=== PATIENT | female | born 1970 | race Two or more races ===

== ENCOUNTER 2017-01-21 10:11 | Inpatient (IN) | payer OTHER ==
[~2017-01-21] VITALS: Ht 152.4 cm; Wt 77.1 kg
--- NOTE | 2017-01-21 10:20 | NUR ---
BIB SENT BY PRIMARY FOR INFECTED BARTHOLIN CYST. SEEN Joe RINALDI FOR EVAL. VSS. NAD NOTED. STARTED ABX YESTERDAY. SAFETY AND COMFORT MEASURES PROVIDED. WILL MONITOR.
[2017-01-21] MEDS ORDERED: ONDANSETRON HCL/PF 4 MG/2 ML VIAL ONE (10:26)
[2017-01-21] MEDS ORDERED: METRONIDAZOLE 500MG/ NS 100ML 100 ML IV ONE ×2 (10:26→10:30)
[2017-01-21] MEDS ORDERED: HYDROCODONE/APAP 5/325MG 1 EACH TABLET ONE (10:26)
[2017-01-21] MEDS ORDERED: HYDROCODONE/APAP 5/325MG 1 EACH TABLET PO ONE (10:30)
[2017-01-21] MEDS ORDERED: IV NS 0.9% 1,000 ML BAG IV ONE (10:30)
[2017-01-21] MEDS ORDERED: CEFOTETAN DISODIUM 1 G in IV D5W 50 ML IV SCH (10:30)
[2017-01-21] MEDS ORDERED: ONDANSETRON HCL/PF 4 MG/2 ML VIAL IVP ONE (10:30)
--- NOTE | 2017-01-21 10:30 | NUR ---
IV ACCESS STARTED. BLOOD AND CULTURES DRAWN FOR LABS. MEDICATED ORDERED.
[2017-01-21] MEDS ORDERED: CEPH-570 PO (10:52)
[2017-01-21 10:59] LABS: CALCIUM, SERUM 9.2 mg/dL (8.5-10.1); CREATININE 0.8 mg/dL (0.6-1.3); POTASSIUM 3.8 mmol/L (3.5-5.1)
[2017-01-21] MEDS ORDERED: CEFTRIAXONE 1GM BAG (ER ONLY) 1 GM/50 ML PIGGYBACK IV ONE (11:00)
[2017-01-21 11:04] LABS: BASOPHILS % (AUTO) 0.4 % (0.0-2.0); EOSINOPHILS # (AUTO) 0.1 /CMM (0.0-0.7); EOSINOPHILS % (AUTO) 0.7 % (0.0-6.0); HEMATOCRIT 39 % (33-45); HEMOGLOBIN 12.8 g/dL (11.5-14.8); LYMPHOCYTES # (AUTO) 1.9 /CMM (0.8-4.8); LYMPHOCYTES % (AUTO) 17.5 % (20.0-44.0); MEAN CORPUSCULAR HEMOGLOBIN 29 PG (26.0-33.0); MEAN CORPUSCULAR HGB CONC 33 g/dl (31.0-36.0); MEAN CORPUSCULAR VOLUME 87 fL (82-100); MONOCYTES # (AUTO) 0.6 /CMM (0.1-1.30); MONOCYTES % (AUTO) 5.7 % (2.0-12.0); NEUTROPHILS # (AUTO) 8.2 /CMM (1.8-8.9); NEUTROPHILS % (AUTO) 75.7 % (43.0-81.0); PLATELET COUNT (AUTO) 316 /CMM (150-450); RDW COEFFICIENT OF VARIATION 13.9 (11.5-15.0); RED BLOOD CELL COUNT(AUTO) 4.51 MIL/uL (4.0-5.2); WHITE BLOOD COUNT (AUTO) 10.9 K/uL (4.3-11.0)
[2017-01-21 11:05] LABS: ALBUMIN 3.6 g/dL (3.4-5.0); BILIRUBIN,DIRECT 0.1 mg/dL (0.0-0.2); BILIRUBIN,TOTAL 0.3 mg/dL (0.2-1.0); TOTAL PROTEIN, SERUM 8.1 g/dL (6.4-8.2)
[2017-01-21 11:10] LABS: INR 0.93 (0.87-1.13); PROTHROMBIN TIME 9.7 SECS (9.5-12.7)
--- NOTE | 2017-01-21 11:28 | NUR ---
REPORT GIVEN DANE KEY FOR AMY MS 203
[2017-01-21] MEDS ORDERED: CEFTRIAXONE 1GM BAG (ER ONLY) 50 ML IV ONE (11:38)
[2017-01-21 12:10] VITALS: BP 110/59
--- NOTE | 2017-01-21 12:15 | NUR ---
RN INITIAL NOTES PATIENT RECEIVED FROM ER. NO SOB OR DISTRESS NOTED AT THIS TIME. PATIENT DENIES PAIN. PATIENT ORIENTED TO ROOM AND CALL LIGHT. BELONGINGS CHECKED AND VERIFIED. IV FLUSHED AND PATENT. BED IN A LOW POSITION, CALL LIGHT WITHIN PATIENT REACH. WILL CONTACT MD FOR ADMITTING ORDERS.
--- NOTE | 2017-01-21 12:39 | NUR ---
RN NOTES CALLED AND SPOKE TO DR FERNANDO WHO ORDERED TYLENOL #3 Q3H PRN, MORPHINE 4MG IV Q4H PRN, GENTAMICIN IV 80MG Q12H, CLINDAMYCIN IV 600MG IV Q8H, AND AMPICILLIN IV 2G Q6H. ORDERS VERIFIED BY READ BACK AND MD CONFIRMED. ALL ORDERS PLACED. WILL CARRY OUT.
[2017-01-21] MEDS ORDERED: HYDROMORPHONE 1 MG/1 ML DISP.SYRIN IV PRN (13:00)
[2017-01-21] MEDS ORDERED: FEE PK DOSING 1 MIN EA MC ONE (13:46)
[2017-01-21] MEDS: IV D5 LR 1,000 ML IV PRN (14:07)
[2017-01-21] MEDS: CLINDAMYCIN 600 MG in IV D5W 50 ML IV SCH ×2 (14:08→21:39)
[2017-01-21] MEDS: AMPICILLIN 2 GM in IV NS 0.9% 100 ML IV SCH ×2 (14:08→20:38)
[2017-01-21] MEDS: ACETAMINOPHEN W/ CODEINE#3 1 EA TABLET PO PRN ×3 (15:22→23:42)
[2017-01-21] MEDS: GENTAMICIN 400 MG in IV D5W 100 ML IV SCH (15:24)
[2017-01-21 16:00] VITALS: BP 116/60
[2017-01-21] MEDS: DOCUSATE SODIUM 100 MG CAPSULE PO SCH (16:24)
--- NOTE | 2017-01-21 18:42 | NUR ---
RN CLOSING NOTES NO SIGNIFICANT CHANGES IN PATIENT CONDITION THROUGHOUT THE SHIFT. NO SOB OR DISTRESS NOTED AT THIS TIME. PATIENT DENIES PAIN AT THIS TIME. BED IN A LOW POSITION, CALL LIGHT WITHIN PATIENT REACH. WILL ENDORSE FOR AMY.
--- NOTE | 2017-01-21 19:00 | NUR ---
MS/RN OPENING NOTES PT RECEIVED IN BED. A/O X 3. TOLERATING ROOM AIR, BREATHING EVEN AND UNLABORED, NO APPARENT SIGN OF DISTRESS. PT APPEARS CALM. BED IN LOW/LOCKED POSITION WITH CALL LIGHT IN REACH. SIDE RAILS UPX2 AND BED ALARM ON FOR SAFETY. WILL CONTINUE TO MONITOR
[2017-01-21 19:54] VITALS: BP 101/70
[2017-01-21 20:00] VITALS: BP 101/70
[2017-01-21] MEDS ORDERED: GENTAMICIN 80 MG in IV D5W 50 ML IV SCH (21:00)
[2017-01-22] VITALS (16 sets, daily range): BP systolic 90–108; BP diastolic 51–66
--- NOTE | 2017-01-22 00:03 | NUR ---
received a call from lab reporting gentamycin trough level of 3. per last dose of gentamycin was give at 1524 by ariane. per pharmacy report gentamycin random will be drawn at 2300. so the gentamycin level is random instead of trough. next gentamycin level will be at 1400 tmrw which will be reviewed by pharmacy.
[2017-01-22] MEDS: AMPICILLIN 2 GM in IV NS 0.9% 100 ML IV SCH ×4 (02:29→20:28)
[2017-01-22] MEDS: IV D5 LR 1,000 ML IV PRN ×2 (04:17→21:18)
[2017-01-22] MEDS: CLINDAMYCIN 600 MG in IV D5W 50 ML IV SCH ×3 (04:17→21:20)
--- NOTE | 2017-01-22 06:28 | NUR ---
MS RN CLOSING NOTES PATIENT COMFORTABLY ASLEEP AND EASILY AWAKEN, HOB ELEVATED FOR BETTER LUNG EXPANSION. PATIENT DENIES PAIN AT THIS TIME. RESPIRATIONS EVEN AND UNLABORED. TOLERATING ROOM AIR 99% NO S/S OF ACUTE DISTRESS, NO SOB, AFEBRILE, ALL NURSING CARE RENDERED, ON ATB WITH NO A/R NOTED. NEEDS ATTENDED AND ANTICIPATED, KEPT CLEAN AND DRY AND COMFORTABLE, GOOD SKIN CARE PROVIDED. FREQUENT VISUAL CHECK DONE FOR SAFETY EVERY 2 HOURS. SAFE HAZARD FREE ENVIRONMENT PROVIDED. CALL LIGHT WITHIN EASY TO REACH, ON LOW BED AT ALL TIMES TO ENSURE SAFETY, WILL ENDORSE TO THE NEXT SHIFT CONTINUE PLAN OF CARE.
[2017-01-22 06:42] LABS: CALCIUM, SERUM 8.2 mg/dL (8.5-10.1); CREATININE 0.8 mg/dL (0.6-1.3); POTASSIUM 3.8 mmol/L (3.5-5.1)
--- NOTE | 2017-01-22 07:22 | NUR ---
MSRN OPENING NOTES PATIENT RECEIVED AWAKE IN BED IN NO ACUTE SIGNS OF DISTRESS. A/O X 3. VERBALLY RESPONSIVE. REPORTED LIZA PT IS NPO FOR POSSIBLE SURGERY TODAY. ON ROOM AIR, BREATHING EVEN AND UNLABORED. IV ACCESS ON LEFT AC INTACT AND PATENT WITH D5LR AT 100ML/HR INFUSING WELL. BED IN LOW/LOCKED POSITION WITH CALL LIGHT IN REACH. SIDE RAILS UP X2 AND BED ALARM ON FOR SAFETY. WILL CONTINUE TO MONITOR PT ACCORDINGLY.
[2017-01-22] MEDS: DOCUSATE SODIUM 100 MG CAPSULE PO SCH ×2 (08:40→17:17)
[2017-01-22] MEDS ORDERED: MORPHINE SULFATE INJ 4 MG/ML DISP.SYRIN IV PRN (12:00)
[2017-01-22] MEDS ORDERED: MEPERIDINE HCL/PF 50 MG/ML DISP.SYRIN IV PRN (12:00)
[2017-01-22] MEDS ORDERED: MIDAZOLAM HCL 2 MG/2ML VIAL ONE (12:38)
[2017-01-22] MEDS ORDERED: FENTANYL PF 100MCG/2ML AMPUL ONE (12:38)
--- NOTE | 2017-01-22 12:50 | NUR ---
RN NOTES PATIENT TRANSPORTED TO O.R. VIA HER BED FOR BARTHOLIN GLANDS ABSCESS EXCISION. AWAKE, ALERT AND ORIENTED X 3. CONSENT FOR THE OPERATION SIGNED BY PT AFTER EXPLAINING THE PROCEDURE. DR FERNANDO ALSO CAME TO SEE PT. V/S TAKEN AND RECORDED: BP 108/67, R 18, P 99, T 98F, SP02 94%. WILL WAIT FOR PT AFTER OPERATION.
[2017-01-22] MEDS ORDERED: HYDROGEN PEROXIDE 480 ML BOTTLE ONE (13:17)
[2017-01-22] MEDS ORDERED: KETOROLAC TROMETHAMINE INJ 30 MG/ML VIAL IV PRN (14:00)
[2017-01-22] MEDS ORDERED: ONDANSETRON HCL/PF 4 MG/2 ML VIAL IVP PRN ×2 (14:00→14:30)
[2017-01-22] MEDS ORDERED: IV D5 LR 1,000 ML IV PRN (14:00)
--- NOTE | 2017-01-22 14:19 | NUR ---
Patient lives with family. She is ambulatory and independent with adl's. No dc planning needs identified at this time. Spouse will provide ride when discharge. Addendum: 01/22/17 at 1419 by ANA BOB RN Amended: Links added.
--- NOTE | 2017-01-22 14:20 | NUR ---
RN NOTES PATIENT RETURNED TO UNIT S/P BARTHOLIN GLANDS ABSCESS REMOVAL BY LIZZ TORRES. AWAKE AND ALERT. PT ON 02 VIA N/C AT 2LPM AT THIS TIME, BREATHING EVEN WITH NO DISTRESS NOTED. V/S TAKEN: BP 104/67, P 46, R 18, T 98.1 SP02 99%. ASSESSED PT AND NOTED WITH DRESSING INTACT ON LEFT GROIN, NO ACTIVE BLEEDING NOTED. PT ASKED IF SHE'S IN PAIN AND STATED NO. PT NOTED WITH NEWLY INSERTED FINLEY CATHETER FR#16 WITH NIC COLORED URINE NOTED TO COLLECTING CANISTER. MD WITH ORDER TO MONITOR I AND O EVERY SHIFT. CBC IN AM. V/S Q 15MINS X2HRS THEN [id number] X 2HRS , THEN Q1HRS X 2HRS AND Q 4HRS THEREAFTER. ALSO TO PREPARE WOUND SUPPLIES AT BEDSIDE FOR TOMORROW'S DRESSING CHANGE. PT ALSO TO RECEIVED MORPHINE DRIP 1 MG LOCK-OUT INTERVAL 7MINUTES WITH ONE HOUR LIMIT 8MG. PT ALSO TO START ON CLEAR LIQUID DIET AND ADVANCE TOLERATED. PT TO CONTINUE ON ANTIOBIOTIC THERAPIES ORDERED. WILL CONTINUE TO MONITOR
[2017-01-22] MEDS ORDERED: NALOXONE HCL 0.4 MG/ML AMPUL IV PRN (14:30)
[2017-01-22] MEDS ORDERED: HYDROMORPHONE INJ 2 MG/ML DISP.SYRIN IV PRN (14:30)
[2017-01-22] MEDS: GENTAMICIN 400 MG in IV D5W 100 ML IV SCH (14:36)
[2017-01-22] MEDS ORDERED: KEY,NONCONTROL,TO KEEP IN PYXI 1 EA MC ONE (15:05)
[2017-01-22] MEDS: MORPHINE SULFATE 30 MG in IV NS 0.9% 28 ML, PCA TOTAL VOLUME 1 BAG IV PRN ×3 (15:44)
--- NOTE | 2017-01-22 16:11 | NUR ---
RN NOTES PATIENT STARTED ON MORPHINE DRIP 1MG/ML WITH LOCKOUT TIME OF 7 MINUTES AND ONLY 8MG ONE HOUR LIMIT. EXPLAINED TO PT HOW TO USE TAR CHASER MACHINE AND VERBALIZED UNDERSTANDING. WILL CONTINUE TO MONITOR
--- NOTE | 2017-01-22 18:55 | NUR ---
MS RN CLOSING NOTES PATIENT RESTING IN BED AT MODERATE HIGH BACKREST WATCHING TV. A/O X 3, SAME ABLE TO VERBALIZED NEEDS , NO C/O PAIN VOICED SINCE OPERATION THIS AFTERNOON. ON ROOM AIR, BREATHING EVEN AND UNLABORED. DRESSING ON LEFT GROIN INTACT, DRY WITH NO ACTIVE BLEEDING NOTED. FINLEY CATHETER IN PLACED AND ACTIVELY DRAINING CLEAR NIC URINE TO BEDSIDE DRAINAGE BAG. IV ACCESS ON LEFT AC INTACT AND PATENT WITH D5LR AT 100ML/HR INFUSING WELL, NO SIGNS OF INFILTRATION NOTED. KEPT BED IN LOW/LOCKED POSITION WITH CALL LIGHT IN REACH. SIDE RAILS UP X2 AND BED ALARM ON FOR SAFETY. WILL ENDORSED TO JACQUARD CARD LACER NURSE FOR AMY. .
--- NOTE | 2017-01-22 19:00 | NUR ---
MS/RN OPENING NOTES PT RECEIVED IN BED. A/O X 4. STABLE CONDITION. BREATHING EVEN AND UNLABORED, TOLERATING ROOM AIR 98% NO APPARENT SIGN OF DISTRESS. BED IN LOW/LOCKED POSITION WITH CALL LIGHT IN REACH. SIDE RAILS UPX2 AND BED ALARM ON FOR SAFETY. WILL CONTINUE TO MONITOR
[2017-01-23] VITALS: BP 103/51
[2017-01-23] MEDS: AMPICILLIN 2 GM in IV NS 0.9% 100 ML IV SCH ×4 (02:35→20:20)
[2017-01-23] MEDS: CLINDAMYCIN 600 MG in IV D5W 50 ML IV SCH ×3 (04:46→21:05)
[2017-01-23 06:00] VITALS: BP 98/62
--- NOTE | 2017-01-23 06:37 | NUR ---
MS RN CLOSING NOTES PT ASLEEP EASILY AWAKEN, HEAD OF BED ELEVATED FOR BETTER LUNG EXPANSION. DENIES PAIN THROUGHOUT THE SHIFT. ON MOTION GRAPHICS DESIGNER PUMP EDUCATED ABOUT THE USES OF IT. VERBALIZED UNDERSTANDING. PER PATIENT SHE IS NOT IN PAIN,. 0 MG NO USAGE OF MOTION GRAPHICS DESIGNER PUMP THROUGHOUT 12 HR SHIFT, IN STABLE CONDITION. TOLERATING ROOM AIR 02 SAT AT 99%. NO S/S OF ACUTE DISTRESS, NO SOB, RESPIRATIONS EVEN AND UNLABORED. PATIENT DENIES PAIN AT THIS TIME. S/P CYST EXCISION WITH INTACT DRESSING NO S/S OF ACTIVE BLEEDING NOTED. PER PT SHE DOESNT WANT THE DRESSING TO BE TAKEN OFF AT THIS TIME, DRESSING IS NOT SOILED. ON ATB WITH NO A/R NOTED. F/C CATH INTACT DRAINING YELLOW VIA GRAVITY WITH NO SEDIMENTS NO HEMATURIA NO CLOUDINESS. AFEBRILE, ALL NURSING CARE RENDERED, NEEDS ATTENDED AND ANTICIPATED, KEPT CLEAN AND DRY AND COMFORTABLE, GOOD SKIN CARE PROVIDED. SAFETY HAZARD FREE ENVIRONMENT.. CALL LIGHT WITHIN EASY TO REACH, ON LOW BED AT ALL TIMES TO ENSURE SAFETY, WILL ENDORSE TO THE NEXT SHIFT CONTINUE PLAN OF CARE.
--- NOTE | 2017-01-23 07:30 | NUR ---
MS/RN Patient received Patient received from supervisor furnace room. No needs at this time. CLOTH MERCERIZER BACK TENDER ordered, but has not been used overnight as patient stating that pain has improved since surgery. Per MD order, all dressing and packing supplies at bedside. Call light within reach, will continue to monitor.
[2017-01-23 08:00] VITALS: BP 114/58
--- NOTE | 2017-01-23 08:00 | NUR ---
MS/RN Medications IVAB administered as ordered.
[2017-01-23] MEDS: DOCUSATE SODIUM 100 MG CAPSULE PO SCH ×2 (08:07→17:00)
[2017-01-23 08:15] LABS: HEMATOCRIT 36 % (33-45); HEMOGLOBIN 11.9 g/dL (11.5-14.8); MEAN CORPUSCULAR HEMOGLOBIN 29 PG (26.0-33.0); MEAN CORPUSCULAR HGB CONC 33 g/dl (31.0-36.0); MEAN CORPUSCULAR VOLUME 86 fL (82-100); PLATELET COUNT (AUTO) 298 /CMM (150-450); RDW COEFFICIENT OF VARIATION 14.2 (11.5-15.0); RED BLOOD CELL COUNT(AUTO) 4.18 MIL/uL (4.0-5.2); WHITE BLOOD COUNT (AUTO) 5.6 K/uL (4.3-11.0)
[2017-01-23 08:32] LABS: CALCIUM, SERUM 8.4 mg/dL (8.5-10.1); CREATININE 0.7 mg/dL (0.6-1.3); POTASSIUM 3.8 mmol/L (3.5-5.1)
[2017-01-23 09:22] LABS: EOSINOPHILS % (MANUAL) 1 % (0-4); LYMPHOCYTES % (MANUAL) 28 % (16-48); MONOCYTES % (MANUAL) 7 % (0-11.0); NEUTROPHILS % (MANUAL) 64 (42-76)
--- NOTE | 2017-01-23 10:13 | NUR ---
MS/RN BM Assisted to bathroom, BM.
--- NOTE | 2017-01-23 11:42 | NUR ---
MS/RN S/B Dr Corcoran Seen by Dr Corcoran - dressing changed, carey catheter removed. regional training manager to be contacted to arrange daily home health for wound care. Discharge planning for tomorrow.
--- NOTE | 2017-01-23 13:00 | NUR ---
MS/RN S/B care transition manager Seen by bilingual case manager - having difficulty at this time finding home health agency in patient's [place] Agencies that are in area do not accept patient's insurance or are unable to verify insurance due to it being weekend. Patient made aware that discharge may not happen until Wednesday
[2017-01-23] MEDS ORDERED: KEY,NONCONTROL,TO KEEP IN PYXI 1 EA MC ONE ×2 (14:06→15:40)
--- NOTE | 2017-01-23 14:30 | NUR ---
MS/RN Gentamicin Gentamicin dose ordered for 2p. Pharmacy called as medication not in med room. Per Sunny, order has to be reviewed.
[2017-01-23] MEDS: GENTAMICIN 400 MG in IV D5W 100 ML IV SCH (15:36)
[2017-01-23] MEDS: MORPHINE SULFATE 30 MG in IV NS 0.9% 28 ML, PCA TOTAL VOLUME 1 BAG IV PRN ×3 (15:45)
[2017-01-23 16:00] VITALS: BP 116/60
[2017-01-23] MEDS: LACTOBACILLUS RHAMNOSUS GG 1 EACH CAP.SPRINK PO SCH (17:20)
--- NOTE | 2017-01-23 18:11 | NUR ---
MS/RN End note Dressing changed as ordered and repacked. SENIOR INFORMATICA ETL DEVELOPER to be taken down later this evening. All needs atteded, call light within reach, will endore to car shifter.
--- NOTE | 2017-01-23 19:20 | NUR ---
RN NOTES MORPHINE OFFICE MACHINE TECHNICIAN DISCONTINUED PER MD ORDER. IV INFUSION REMOVED. DISPOSED OF EXCESS MORPHINE PER PROTOCOL
[2017-01-23 20:00] VITALS: BP 102/61
--- NOTE | 2017-01-23 20:00 | NUR ---
RECEIVED PATIENT IN BED, ALERT AND ORIENTED X4, CALM, NO SOB, NO COMPLAIN OF PAIN AT THIS TIME, ON MDS MANAGER, WILL DISCONTINUE MDS MANAGER. ABLE TO AMBULATE TO THE TOILET, NO COMPLAIN OF PAIN ON URINATION, NEEDS ATTENDED, CALL LIGHT WITHIN REACH,.
[2017-01-23 21:49] VITALS: BP 102/61
[2017-01-24] MEDS: AMPICILLIN 2 GM in IV NS 0.9% 100 ML IV SCH ×2 (02:40→08:13)
[2017-01-24] MEDS: CLINDAMYCIN 600 MG in IV D5W 50 ML IV SCH ×2 (05:17→12:15)
--- NOTE | 2017-01-24 06:40 | NUR ---
RN NOTES PATIENT IS RESTING COMFORTABLY IN BED, NO SOB, NO COMPLAIN OF PAIN, ABLE TO TOLERATE DIET, ABLE TO VOID WITHOUT DIFFICULTY AND PAIN, DRESSING IS INTACT, FOR D/C PLANNING TODAY. NEEDS ATTENDED, CALL LIGHT WITHIN REACH
--- NOTE | 2017-01-24 07:24 | NUR ---
RN NOTES REPORT RECEIVED FROM SANITARY PLUMBER. PATIENT IS RESTING COMFORTABLY IN BED. NO SOB OR DISTRESS NOTED. PATIENT DENIES PAIN AT THIS TIME. BED IN A LOW POSITION, CALL LIGHT WITHIN PATIENT REACH. WILL CONTINUE TO MONITOR.
[2017-01-24 08:05] VITALS: BP 107/60
[2017-01-24] MEDS: LACTOBACILLUS RHAMNOSUS GG 1 EACH CAP.SPRINK PO SCH (08:12)
[2017-01-24] MEDS: DOCUSATE SODIUM 100 MG CAPSULE PO SCH (08:13)
[2017-01-24] MEDS: ACETAMINOPHEN W/ CODEINE#3 1 EA TABLET PO PRN (08:17)
[2017-01-24 10:30] LABS: CALCIUM, SERUM 8.4 mg/dL (8.5-10.1); POTASSIUM 3.4 mmol/L (3.5-5.1)
[2017-01-24] MEDS ORDERED: POTASSIUM CHLORIDE 20 MEQ TAB.PRT.SR PO SCH (11:30)
--- NOTE | 2017-01-24 13:12 | NUR ---
E COMMERCE MERCHANDISING COORDINATOR NOTE DISCHARGE INSTRUCTIONS GIVEN TO PATIENT AND ABLE TO UNDERSTAND. ALL PAPERWORK SIGNED AND BELONGINGS ACCOUNTED FOR. PATIENT GIVEN CONTACT INFORMATION FOR DR FERNANDO WITH INSTRUCTIONS TO FOLLOW UP WITH THE MD NEXT WEDNESDAY. IV DISCONNECTED AND PRESSURE APPLIED. NO BLEEDING NOTED AT THE SITE. FLU SHOT NOT GIVEN. ON ADMISSION, PATIENT AGREED TO FLU SHOT, BUT WHEN ASKED ON DISCHARGE, PT STATES THAT SHE WOULD RATHER HAVE THE FLU SHOT AT WORK WHEN SHE IS FEELING BETTER. PATIENT LEFT IN STABLE CONDITION, VIA WHEEL CHAIR WITH INWARD TOLL OPERATOR AND FAMILY. NO SOB OR DISTRESS NOTED. PATIENT DENIES PAIN. PATIENT DISCHARGED TO HOME. PRESCRIPTIONS FOR PAIN GIVEN TO PATIENT.
== END 2017-01-24 13:12 | disposition home health service (06) | DRG 581 ==
LOC: ER 10:14 → MEDSG2 11:42
PROVIDERS: ADMIT Obstetrics & Gynecology
PROC: 0H99XZZ Drainage of Perineum Skin, External Approach (ICD-10-PCS; principal; 2017-01-22 13:15)
DX: L02.215 Cutaneous abscess of perineum (principal); N75.0 Cyst of Bartholin's gland; Z90.49 Acquired absence of other specified parts of digestive tract; Z98.84 Bariatric surgery status
CPT/HCPCS: 36415; 71010-TC; 80048-TC; 80076-TC; 80170-TC; 83605-TC; 84702-TC; 85025-TC; 85730-TC; 87040-TC; 87070-TC; 87075-TC; 87081-TC; 87186-TC; A4216; A4606; A6402; A6403; J0290; J0696; J1100; J1580; J1885; J2175; J2250; J2270; J2405; J2704; J3010; J3490; J7030; J7060; Z7610

== ENCOUNTER 2019-06-19 08:58 | Inpatient (IN) | payer OTHER ==
[~2019-06-19] VITALS: Ht 152.4 cm; Wt 82.2 kg
[~2019-06-19 08:58] MED LIST: CEPH-570 PO
--- NOTE | 2019-06-19 09:04 | NUR ---
DR MUHAMMAD AT BEDSIDE FOR EVAL.
--- NOTE | 2019-06-19 09:14 | NUR ---
IV LINE STARTED BLOOD DRAW AND SENT TO LAB.
[2019-06-19 09:25] LABS: BASOPHILS % (AUTO) 0.4 % (0.0-2.0); EOSINOPHILS % (AUTO) 0.5 % (0.0-6.0); HEMATOCRIT 40 % (33-45); LYMPHOCYTES # (AUTO) 2.1 /CMM (0.8-4.8); LYMPHOCYTES % (AUTO) 20.7 % (20.0-44.0); MEAN CORPUSCULAR HGB CONC 33 g/dl (31.0-36.0); MEAN CORPUSCULAR VOLUME 90 fL (82-100); MONOCYTES # (AUTO) 0.7 /CMM (0.1-1.30); MONOCYTES % (AUTO) 7.1 % (2.0-12.0); NEUTROPHILS # (AUTO) 7.4 /CMM (1.8-8.9); NEUTROPHILS % (AUTO) 71.3 % (43.0-81.0); PLATELET COUNT (AUTO) 307 /CMM (150-450); RED BLOOD CELL COUNT(AUTO) 4.38 MIL/uL (4.0-5.2); WHITE BLOOD COUNT (AUTO) 10.4 K/uL (4.3-11.0)
[2019-06-19 09:35] LABS: CALCIUM, SERUM 8.9 mg/dL (8.5-10.1); CREATININE 0.9 mg/dL (0.6-1.3); POTASSIUM 3.6 mmol/L (3.5-5.1)
[2019-06-19 09:41] LABS: ALBUMIN 3.5 g/dL (3.4-5.0); BILIRUBIN,DIRECT 0.1 mg/dL (0.0-0.2); BILIRUBIN,TOTAL 0.3 mg/dL (0.2-1.0); TOTAL PROTEIN, SERUM 7.9 g/dL (6.4-8.2)
[2019-06-19] MEDS ORDERED: ANESTHESIA TRAY IN PYXIS 1 EA TRAY MC ONE (10:23)
--- NOTE | 2019-06-19 10:43 | NUR ---
CALLED NURSING SUP FOR M/S BED.
[2019-06-19] MEDS ORDERED: MIDAZOLAM HCL 2 MG/2ML VIAL ONE (10:58)
[2019-06-19] MEDS ORDERED: FENTANYL PF 250MCG/5ML AMPUL ONE (10:59)
[2019-06-19] MEDS ORDERED: FENTANYL PF 100MCG/2ML AMPUL ONE (10:59)
[2019-06-19] MEDS ORDERED: FAMOTIDINE/PF INJ 20 MG/2 ML VIAL IV ONE (11:00)
--- NOTE | 2019-06-19 11:37 | NUR ---
REPORT GIVEN TO OR NURSE FOR TRANSPORT TO PRE OP DEPARTMENT
[2019-06-19] MEDS ORDERED: CEPH-570 PO (12:15)
[2019-06-19] MEDS ORDERED: BUPIVACAINE MPF W/EPI 0.25% 30 ML VIAL ONE (12:15)
[2019-06-19] MEDS ORDERED: HYDROGEN PEROXIDE 480 ML BOTTLE ONE (12:45)
[2019-06-19] MEDS ORDERED: METRONIDAZOLE 500MG/ NS 100ML 100 ML IV ONE (13:11)
[2019-06-19] MEDS ORDERED: BACITRACIN 50000 UNITS/VIAL ONE (13:12)
[2019-06-19] MEDS ORDERED: BACITRACIN ZINC OINT (15 GM) 15 GM TUBE TP ONE (13:13)
[2019-06-19] MEDS ORDERED: HYDROMORPHONE INJ 2 MG/ML DISP.SYRIN ONE (13:50)
[2019-06-19 14:40] VITALS: BP 112/65
--- NOTE | 2019-06-19 14:45 | NUR ---
MS RN NOTES ADMITTED PT ON UNIT FROM [facility] RECOVERY UNIT. TRANSPORTED ON A STRETCHER. PT AOX3-4. VITAL SIGNS TAKEN AND STABLE. BP 112/65, PULSE 80, RR 18, TEMP 97.6, SPO2 100% ON RA. IV ACCESS ON LAC G#20 INTACT, PATENT AND INFUSING WELL. FINLEY CATHETER DRAINING TO GRAVITY CLEAR YELLOW URINE OUTPUT. RESPIRATION ARE EVEN AND UNLABORED. NO S/S OF SOB OR ANY ACUTE DISTRESS NOTED. PT DENIES PAIN AT THIS TIME, SAFETY PRECAUTIONS IN PLACE. NO BLEEDING NOTED, DRESSING INTACT. SURGEON ORDER TAKEN AND CARRIED OUT. PT ABLE TO VERBALIZE NEED AND UNDERSTANDS TO CALL FOR ASSISTANCE. BED IN LOWEST LOCKED POSITION, SIDE RAIL UP X 3, CALL LIGHT WITHIN REACH. WILL CONTINUE TO MONITOR
[2019-06-19] MEDS ORDERED: IV D5 LR 1,000 ML IV PRN (15:00)
[2019-06-19] MEDS ORDERED: ACETAMINOPHEN W/ CODEINE#3 1 EA TABLET PO PRN (15:30)
[2019-06-19] MEDS ORDERED: MORPHINE SULFATE INJ 2 MG/ML DISP.SYRIN IV PRN (15:30)
[2019-06-19 16:25] VITALS: BP 100/68
[2019-06-19] MEDS: GENTAMICIN 90 MG in IV D5W 100 ML IV SCH ×2 (17:11→23:07)
[2019-06-19] MEDS: DOCUSATE SODIUM 100 MG CAPSULE PO SCH (17:12)
[2019-06-19] MEDS: CLINDAMYCIN 600 MG in IV D5W 50 ML IV SCH (18:22)
--- NOTE | 2019-06-19 19:05 | NUR ---
RN MS OPENING NOTES RECEIVED PATIENT IN BED AWAKE ALERT AND ORIENTED X 4, RESPIRATIONS EVEN AND UNLABORED WITH EQUAL RISE AND FALL OF CHEST, DENIES ANY PAIN OR DISCOMFORT AT THIS TIME,FINLEY CATHETER INTACT AND DRAINING URINE YELLOW CLEAR. NOTED SLIGHT BLOOD STAIN TO PADDING ON VAGINAL AREA. NO DISTRESS PRESENT, IV SITE TO LEFT AC#2O G INTACT AND PATENT, NO REDNESS, NO INFILTRATION , IVF RUNNING ORDERED, ORIENTED TO STAFF AND CALL LIGHT AND KEPT WITHIN REACH, CLEAR DIET WILL MONITOR FOR TOLERANCE. ALL NEEDS ATTENDED AT THIS TIME, WILL CONTINUE TO MONITOR AND ATTEND TO NEEDS.
--- NOTE | 2019-06-19 19:05 | NUR ---
MS RN CLOSING NOTES PT IN BED, AWAKE AT THIS TIME. AOX3-4. VITAL SIGNS TAKEN AND STABLE. B IV ACCESS ON LAC G#20 INTACT, PATENT AND INFUSING WELL. FINLEY CATHETER DRAINING TO GRAVITY CLEAR YELLOW URINE OUTPUT. RESPIRATION ARE EVEN AND UNLABORED. PT APPEARS COMFORTABLE. PT DENIES PAIN AT THIS TIME, SAFETY PRECAUTIONS IN PLACE. NO BLEEDING NOTED, DRESSING INTACT. BED IN LOWEST LOCKED POSITION, SIDE RAIL UP X 3, CALL LIGHT WITHIN REACH. WILL ENDORSE TO NIGHT NURSE OR AMY
[2019-06-19] MEDS: AMPICILLIN SODIUM 2 GM in IV NS 0.9% 100 ML IV SCH (19:09)
--- NOTE | 2019-06-19 19:28 | NUR ---
RN MS NOTES PATIENT VOMITTED X 1, FELT NAUSEOUS. CALLED AND SPOKE TO WITH NEW ORDER FOR ZOFRAN 4MG IV PRN Q 6HR ORDER READ BACK AND CARRIED OUT WILL CONTINUE TO MONITOR.
[2019-06-19 20:00] VITALS: BP 112/61
[2019-06-19] MEDS ORDERED: ONDANSETRON HCL/PF 4 MG/2 ML VIAL IV PRN (20:00)
[2019-06-19 20:14] VITALS: BP 112/61
[2019-06-20] MEDS: AMPICILLIN SODIUM 2 GM in IV NS 0.9% 100 ML IV SCH ×2 (00:08→05:02)
[2019-06-20] MEDS: CLINDAMYCIN 600 MG in IV D5W 50 ML IV SCH ×2 (01:24→10:05)
[2019-06-20 04:41] VITALS: BP 84/40
[2019-06-20 06:35] LABS: BASOPHILS % (AUTO) 0.7 % (0.0-2.0); EOSINOPHILS % (AUTO) 0.9 % (0.0-6.0); HEMATOCRIT 35 % (33-45); HEMOGLOBIN 11.4 g/dL (11.5-14.8); LYMPHOCYTES # (AUTO) 1.6 /CMM (0.8-4.8); LYMPHOCYTES % (AUTO) 25.2 % (20.0-44.0); MEAN CORPUSCULAR HGB CONC 33 g/dl (31.0-36.0); MEAN CORPUSCULAR VOLUME 90 fL (82-100); MONOCYTES # (AUTO) 0.5 /CMM (0.1-1.30); MONOCYTES % (AUTO) 7.8 % (2.0-12.0); NEUTROPHILS # (AUTO) 4.3 /CMM (1.8-8.9); NEUTROPHILS % (AUTO) 65.4 % (43.0-81.0); PLATELET COUNT (AUTO) 267 /CMM (150-450); RED BLOOD CELL COUNT(AUTO) 3.86 MIL/uL (4.0-5.2); WHITE BLOOD COUNT (AUTO) 6.5 K/uL (4.3-11.0)
--- NOTE | 2019-06-20 06:49 | NUR ---
RN MS CLOSING NOTES PATIENT IN BED AWAKE ALERT AND ORIENTED X 4, RESPIRATIONS EVEN AND UNLABORED WITH EQUAL RISE AND FALL OF CHEST, DENIES ANY PAIN OR DISCOMFORT AT THIS TIME,FINLEY CATHETER INTACT AND DRAINING URINE YELLOW CLEAR TOTAL URINE OUTPUT 280. NOTED MINIMAL BLOOD STAIN TO PADDING ON VAGINAL AREA THROUGHOUT SHIFT. NO DISTRESS PRESENT, IV SITE TO LEFT AC#2O G INTACT AND PATENT, NO REDNESS, NO INFILTRATION , IVF RUNNING ORDERED, CALL LIGHT AND KEPT WITHIN REACH, CLEAR DIET TOLERATED WELL , ALL NEEDS ATTENDED AT THIS TIME, WILL CONTINUE TO MONITOR AND ATTEND TO NEEDS.
[2019-06-20] MEDS: GENTAMICIN 90 MG in IV D5W 100 ML IV SCH (07:52)
--- NOTE | 2019-06-20 08:00 | NUR ---
m/s technical professional: initial assessment received pt in bed awake, a/ox4. on bedrest. f/c draining well to gravity. no c/o pain or any discomfort. instructed to call for assistance. will continue to monitor.
[2019-06-20 08:39] VITALS: BP 105/51
[2019-06-20] MEDS: DOCUSATE SODIUM 100 MG CAPSULE PO SCH (08:53)
--- NOTE | 2019-06-20 09:47 | NUR ---
m/s flame cutting machine operator: notes pt tolerated clear liquid diet and pudding trial. no c/o n/v or any discomfort. pt remains on bedrest. diet advance to regular as ordered.
--- NOTE | 2019-06-20 12:40 | NUR ---
m/s cooker sulfite: notes dr. johnson called and instructed me to bring supplies at bedside and remove carey catheter. orders read back and carried out.
--- NOTE | 2019-06-20 12:45 | NUR ---
m/s deputy united [place] marshal: notes carey catheter removed as ordered, olga. well.
[2019-06-20] MEDS ORDERED: HYDROGEN PEROXIDE 480 ML BOTTLE TP PRN (13:00)
--- NOTE | 2019-06-20 14:15 | NUR ---
m/s refuse collector supervisor: md visit dr. johnson at bedside and assisted by cn. md removed the packing and repacking done by md. orders received to d'c home and f/u with him as scheduled. orders acknowledged.
--- NOTE | 2019-06-20 15:02 | NUR ---
m/s dedicated owner operator: notes discharge instructions given to pt and verbalized understanding. pt has an appt with dr. johnson on wednesday as scheduled. wound care supplies given per md and cn. h/l removed with tip intact. pt getting dressed.
--- NOTE | 2019-06-20 15:15 | NUR ---
m/s furnace erector: discharged discharged home in stable condition accompanied by son via private car.
== END 2019-06-20 15:33 | disposition home or self-care (01) | DRG 746 ==
LOC: ER 08:59 → MED 11:26
PROVIDERS: ADMIT Obstetrics & Gynecology; ATTEND Obstetrics & Gynecology
PROC: 0U9LXZZ Drainage of Vestibular Gland, External Approach (ICD-10-PCS; principal; 2019-06-19)
PROC: 0H99XZZ Drainage of Perineum Skin, External Approach (ICD-10-PCS; principal; 2019-06-19)
DX: N75.1 Abscess of Bartholin's gland (principal); L02.215 Cutaneous abscess of perineum; Z98.84 Bariatric surgery status; N75.0 Cyst of Bartholin's gland
CPT/HCPCS: 36415; 71045-TC; 80048-TC; 80076-TC; 84702-TC; 85025-TC; 85730-TC; 87070-TC; 87081-TC; 87186-TC; A4338; A6253; A6407; G0378; J0290; J0690; J1170; J1580; J2250; J2405; J2704; J2765; J3010; J3490; J7030; J7060